=== PATIENT | female | born 1935 | race Caucasian/White ===

== ENCOUNTER 2018-01-30 11:13 | Inpatient (IN) | payer MEDICARE, OTHER ==
[2018-01-30] VITALS (12 sets, daily range): BP systolic 128–176; BP diastolic 66–108
[~2018-01-30] VITALS: Ht 165.1 cm; Wt 82.8 kg
[~2018-01-30 11:13] MED LIST: AMIODARONE200 MG OR; ANTIVERT25 MG PO; BABY ASPIRIN81 MG PO; BENAZEPRIL10 M1 PO; CALCIUM D- OR; CALTRATE 600 PO; CARVEDILOL25 MG PO; CIPRO500 MG OR; CLONIDINE0.1 MG OR; COREG12.5 MG PO; COUMADIN1 MG PO; DIGOX0.125 MG PO; DYRENIUM50 MG OR; EXTRA STRENGTH500 MG PO; HYDROCHLOROT25 MG PO; HYDROCHLOROTH12.5 M1 PO; HYDROCHLOROTH12.5 MG OR; K-DUR/KLOR-CON10 ME1 PO; KEFLEX500 M1 PO; LANOXIN0.125 MG PO; LASIX 20 MG20 MG/TAB PO; LEVOTHYROXIN125 MCG PO; LEVOTHYROXIN137 MCG PO; MAXZIDE-2537.5 MG/TA PO; MAXZIDE1 TAB OR; OMEGA 31000 MG PO; OMEPRAZOLE10 MG PO; SLO-NIACIN500 MG PO; TRAMADOL HCL50 MG PO
[2018-01-30 12:09] LABS: HEMATOCRIT 28.4 % (37.0-47.0); HEMOGLOBIN 8.7 g/dl (12.0-16.0); IMMATURE GRANULOCYTES 1.1 % (0.0-5.0); MEAN CELL VOLUME 96.9 fL CALC (80.0-100.0); MEAN CORPUSCULAR HGB 29.7 pG CALC (26.0-32.0); MEAN CORPUSCULAR HGB CONC 30.6 g/L CALC (32.0-36.0); NEUT# 3.97 thou/uL (2.00-7.15); RED BLOOD COUNT 2.93 mill/uL (4.20-5.60); RED CELL DISTRI WIDTH 19.4 % (11.5-15.5)
[2018-01-30 12:22] LABS: ALBUMIN 3.9 g/dL (3.2-5.0); ALKALINE PHOSPHATASE 72 u/l (38-126); ANION GAP 14 (6-22 (CALC)); BILIRUBIN, TOTAL 0.8 mg/dL (0.0-1.4); BUN 13 mg/dL (8-23); BUN/CREATININE RATIO 14 (12-20 (CALC)); CALCULATED LDLCHOLESTEROL 49 mg/dL (62-129 (CALC)); CARBON DIOXIDE 26 mmol/l (22-30); CHLORIDE 105 mmol/l (95-108); CHOLESTEROL HDL RATIO 2.6 (<4.4 (CALC)); GFR 53 ML/MIN (>=60 (CALC)); GFR FOR AFR.AMER. > 60 ML/MIN (>=60 (CALC)); HDL CHOLESTEROL 43 mg/dL (>=40); POTASSIUM 3.9 mmol/l (3.5-5.1); SGOT/AST 55 u/l (9-36); SODIUM 141 mmol/l (137-146); TOTAL CHOLESTEROL 110 mg/dl (0-199); TOTAL PROTEIN 7.7 g/dL (6.3-8.2); TOTAL TRIGLYCERIDES 88 mg/dl (30-149); VLDL CHOLESTROL 18 mg/dl (0-48 (CALC))
[2018-01-30 12:27] LABS: DIGOXIN 0.5 ng/mL (0.8-2.0)
[2018-01-30] MEDS ORDERED: COREG12.5 MG PO (12:38)
[2018-01-30] MEDS ORDERED: LOSARTAN POT50 MG PO (12:39)
[2018-01-30] MEDS ORDERED: HYDRALAZINE10 M2 PO (12:40)
[2018-01-30] MEDS ORDERED: LASIX 40 MG TAB40 MG PO (12:40)
[2018-01-30] MEDS ORDERED: TYLENOL 8 HOUR650 MG PO (12:44)
[2018-01-30 12:52] LABS: TSH, 3RD GENERATION 6.22 uIU/mL (0.47 - 4.68)
[2018-01-30 16:12] LABS: URINE BILIRUBIN - DIPSTICK NEGATIVE (NEGATIVE); URINE BLOOD DIPSTICK NEGATIVE (NEGATIVE); URINE COLOR YELLOW; URINE GLUCOSE - DIPSTICK NEGATIVE (NEGATIVE); URINE KETONE NEGATIVE (NEGATIVE); URINE LEUK ESTERASE NEGATIVE (NEGATIVE); URINE NITRITE - DIPSTICK NEGATIVE (Negative); URINE PROTEIN - DIPSTICK NEGATIVE (NEG-TRACE); URINE UROBILINOGEN - DIPSTICK 0.2 E.U./dL (0.2)
[2018-01-30 16:15] LABS: URINE CLARITY CLEAR
[2018-01-30] MEDS ORDERED: B121000 MCG PO (16:33)
[2018-01-31] VITALS (18 sets, daily range): BP systolic 72–127; BP diastolic 46–98
[2018-01-31 04:53] LABS: HEMOGLOBIN 8.9 g/dl (12.0-16.0); MEAN CELL VOLUME 95.2 fL CALC (80.0-100.0); MEAN CORPUSCULAR HGB 30.3 pG CALC (26.0-32.0); MEAN CORPUSCULAR HGB CONC 31.8 g/L CALC (32.0-36.0); RED BLOOD COUNT 2.94 mill/uL (4.20-5.60); RED CELL DISTRI WIDTH 19.2 % (11.5-15.5)
[2018-01-31 05:05] LABS: ALBUMIN 3.7 g/dL (3.2-5.0); BILIRUBIN, TOTAL 0.9 mg/dL (0.0-1.4); CREATININE 1.1 mg/dL (0.5-1.0); MAGNESIUM 1.6 mg/dL (1.6-2.3); TOTAL PROTEIN 7.1 g/dL (6.3-8.2)
[2018-01-31 05:09] LABS: POTASSIUM 3.1 mmol/l (3.5-5.1)
[2018-01-31 08:39] LABS: INTERNATIONAL NORMALIZED RATIO 1.9 RATIO (0.7-1.3)
[2018-01-31] MEDS ORDERED: WARFARIN1 MG PO (13:06)
[2018-01-31] MEDS ORDERED: WARFARIN2 MG PO (13:07)
[2018-02-01 00:18] VITALS: BP 115/67
[2018-02-01 02:46] VITALS: BP 78/53
[2018-02-01 04:46] VITALS: BP 87/66
[2018-02-01 05:55] LABS: HEMATOCRIT 29.1 % (37.0-47.0); HEMOGLOBIN 9.3 g/dl (12.0-16.0); IMMATURE GRANULOCYTES 0.5 % (0.0-5.0); MEAN CELL VOLUME 94.8 fL CALC (80.0-100.0); MEAN CORPUSCULAR HGB 30.3 pG CALC (26.0-32.0); NEUT# 3.64 thou/uL (2.00-7.15); RED BLOOD COUNT 3.07 mill/uL (4.20-5.60); RED CELL DISTRI WIDTH 18.8 % (11.5-15.5)
[2018-02-01 06:03] LABS: ALBUMIN 3.4 g/dL (3.2-5.0); BILIRUBIN, TOTAL 0.8 mg/dL (0.0-1.4); CREATININE 1.4 mg/dL (0.5-1.0); MAGNESIUM 1.6 mg/dL (1.6-2.3); POTASSIUM 3.2 mmol/l (3.5-5.1); TOTAL PROTEIN 6.7 g/dL (6.3-8.2)
[2018-02-01 07:00] VITALS: BP 91/58
[2018-02-01 10:00] VITALS: BP 99/49
[2018-02-01 12:00] VITALS: BP 103/59
[2018-02-01] MEDS ORDERED: BUMETANIDE1 MG PO (12:16)
== END 2018-02-01 13:10 | disposition home or self-care (01) | DRG 291 ==
LOC: ICU 11:13
PROVIDERS: ADMIT Internal Medicine; ATTEND Internal Medicine Nephrology
DX: I13.0 Hypertensive heart and chronic kidney disease with heart failure and stage 1 through stage 4 chronic kidney disease, or unspecified chronic kidney disease (principal); I50.33 Acute on chronic diastolic (congestive) heart failure; N17.9 Acute kidney failure, unspecified; N18.3 Chronic kidney disease, stage 3 (moderate); I48.2 Chronic atrial fibrillation; I35.0 Nonrheumatic aortic (valve) stenosis; I25.10 Atherosclerotic heart disease of native coronary artery without angina pectoris; E03.9 Hypothyroidism, unspecified; D63.8 Anemia in other chronic diseases classified elsewhere; E87.6 Hypokalemia; M79.7 Fibromyalgia; M19.90 Unspecified osteoarthritis, unspecified site; I27.20 Pulmonary hypertension, unspecified; Z86.73 Personal history of transient ischemic attack (TIA), and cerebral infarction without residual deficits; Z86.718 Personal history of other venous thrombosis and embolism; Z79.01 Long term (current) use of anticoagulants; Z86.711 Personal history of pulmonary embolism; Z95.0 Presence of cardiac pacemaker

== ENCOUNTER 2018-05-16 12:26 | Outpatient (REF) | payer MEDICARE, OTHER ==
[~2018-05-16 12:26] MED LIST changes: +B121000 MCG PO; +BUMETANIDE1 MG PO; +HYDRALAZINE10 M2 PO; +LASIX 40 MG TAB40 MG PO; +LOSARTAN POT50 MG PO; +TYLENOL 8 HOUR650 MG PO; +WARFARIN1 MG PO; +WARFARIN2 MG PO; +[UNRECOGNIZED DRUG - OTHER] PO
--- NOTE | 2018-05-16 13:03 | NUR ---
HOLD PROCRIT DOSE TODAY. HGB IS 11.2 GOAL HGB IS 10-11 WE WILL HAVE THE PATIENT RETURN IN 2 WEEKS.
== END 2018-05-16 12:56 | disposition home or self-care (01) ==
LOC: INF 12:26
PROVIDERS: ATTEND Internal Medicine Nephrology
DX: D63.1 Anemia in chronic kidney disease (principal); N18.3 Chronic kidney disease, stage 3 (moderate)

== ENCOUNTER → 2018-05-28 | Outpatient (REF) | payer MEDICARE, OTHER ==
[2018-05-28 10:15] LABS: URINE BILIRUBIN - DIPSTICK NEGATIVE (NEGATIVE); URINE BLOOD DIPSTICK NEGATIVE (NEGATIVE); URINE COLOR YELLOW; URINE GLUCOSE - DIPSTICK NEGATIVE (NEGATIVE); URINE KETONE NEGATIVE (NEGATIVE); URINE LEUK ESTERASE MODERATE (Negative); URINE NITRITE - DIPSTICK NEGATIVE (Negative); URINE PROTEIN - DIPSTICK TRACE mg/dL (NEG-TRACE); URINE UROBILINOGEN - DIPSTICK 0.2 E.U./dL (0.2)
[2018-05-28 10:17] LABS: HEMATOCRIT 34.4 % (37.0-47.0); HEMOGLOBIN 10.9 g/dl (12.0-16.0); IMMATURE GRANULOCYTES 1.4 % (0.0-5.0); MEAN CORPUSCULAR HGB 32.6 pG CALC (26.0-32.0); MEAN CORPUSCULAR HGB CONC 31.7 g/L CALC (32.0-36.0); NEUT# 4.05 thou/uL (2.00-7.15); RED BLOOD COUNT 3.34 mill/uL (4.20-5.60); RED CELL DISTRI WIDTH 18.2 % (11.5-15.5)
[2018-05-28 10:22] LABS: URINE CLARITY HAZY
[2018-05-28 10:23] LABS: URINE BACTERIA MODERATE hpf; URINE EPITHELIAL CELLS MODERATE EPI/hpf (0-FEW)
[2018-05-28 10:35] LABS: ALBUMIN 3.8 g/dL (3.2-5.0); BUN 15 mg/dL (8-23); CARBON DIOXIDE 27 mmol/l (22-30); CHLORIDE 104 mmol/l (95-108); GFR 53 ML/MIN (>=60 (CALC)); GFR FOR AFR.AMER. > 60 ML/MIN (>=60 (CALC)); POTASSIUM 3.5 mmol/l (3.5-5.1); SODIUM 141 mmol/l (137-146)
== END | disposition home or self-care (01) ==
LOC: LAB 09:20
PROVIDERS: ATTEND Internal Medicine Nephrology
DX: N18.3 Chronic kidney disease, stage 3 (moderate) (principal); D63.1 Anemia in chronic kidney disease; N25.81 Secondary hyperparathyroidism of renal origin

== ENCOUNTER 2018-06-14 09:38 | Outpatient (REF) | payer MEDICARE, OTHER ==
--- NOTE | 2018-05-29 09:45 | NUR ---
Patient has Procrit injection scheduled for 05/31. On last visit from 05/16, dose was held due to Hgb of 11.2. Last dose received was 8,000 units on 05/02/18. She had a Hgb of 10.9 g/dL on 05/28/18. Patient called and was notified that we will hold dose for this week, 05/31/18 visit and she will return for next visit on 06/14/18. Current Hgb on 05/28/18: 10.9 g/dL Previous Hgb on 05/16/18: 11.2 g/dL Next Iron Study on: 07/18/18 Next Hgb due on: 06/14/18 Pt will come back for recheck of Hgb on 06/14/18. QOL assessment Side effects:No Dose adjustments:No Repeat dose:8,000 units sc 2 weeks
[2018-06-14 11:16] VITALS: BP 151/83
--- NOTE | 2018-06-14 12:57 | NUR ---
Patient is here for Procrit injection Current Procrit dose of 4,000 units 06/14/18, Previous Procrit dose of 8,000 units on 05/02/18. Current Hgb 10.5 g/dL on 06/14/18 Previous Hgb 10.9 g/dL on 05/28/18 Previous Iron study on date: 05/28/18 Next Iron Study on: 08/25/18 Next Hgb due on: 06/28/18 Pt will come back for next dose of on 06/28/18 Notes: Patient verbalized feeling fine but has intermittent unsteady gait which is normal for her. BP: 151/83. No complaint of side effects from procrit. Patient didn't have any questions. QOL assessment Side effects: No Dose adjustments: Yes New dose: 4,000 units SubQ every 2 weeks
== END 2018-06-14 11:53 | disposition home or self-care (01) ==
LOC: INF 09:38
PROVIDERS: ATTEND Internal Medicine Nephrology
DX: D63.1 Anemia in chronic kidney disease (principal); N18.3 Chronic kidney disease, stage 3 (moderate)
CPT/HCPCS: J0885

== ENCOUNTER 2019-04-16 13:08 | Observation (INO) | payer MEDICARE, OTHER ==
[~2019-04-16] VITALS: Ht 165.1 cm; Wt 86.0 kg
[~2019-04-16 13:08] MED LIST changes: -WARFARIN1 MG PO
[2019-04-16] MEDS ORDERED: LEVOTHYROXIN150 MCG PO (14:03)
[2019-04-16] MEDS ORDERED: BUMEX1 M1 (14:04)
[2019-04-16] MEDS ORDERED: WARFARIN2 MG PO (14:06)
[2019-04-16] MEDS ORDERED: PROCRIT2000 UNIT/ IM (14:08)
--- NOTE | 2019-04-16 14:29 | NUR ---
PT AMB TO BATHROOM FOR UA WITH STEADY GAIT IN NO DISTRESS WITH RW
[2019-04-16 15:11] LABS: URINE BILIRUBIN - DIPSTICK NEGATIVE (NEGATIVE); URINE BLOOD DIPSTICK NEGATIVE (NEGATIVE); URINE COLOR YELLOW; URINE GLUCOSE - DIPSTICK NEGATIVE (NEGATIVE); URINE KETONE NEGATIVE (NEGATIVE); URINE NITRITE - DIPSTICK NEGATIVE (Negative); URINE PROTEIN - DIPSTICK TRACE mg/dL (NEG-TRACE); URINE UROBILINOGEN - DIPSTICK 0.2 E.U./dL (0.2)
[2019-04-16 15:12] LABS: HEMATOCRIT 36.7 % (37.0-47.0); HEMOGLOBIN 11.3 g/dl (12.0-16.0); MEAN CELL VOLUME 94.1 fL CALC (80.0-100.0); MEAN CORPUSCULAR HGB CONC 30.8 g/L CALC (32.0-36.0); PLATELET COUNT 337 thou/uL (130-400); RED CELL DISTRI WIDTH 17.4 % (11.5-15.5)
[2019-04-16 15:17] LABS: URINE LEUK ESTERASE SMALL (NEGATIVE)
--- NOTE | 2019-04-16 15:20 | NUR ---
DR VALERIO AT BEDSIDE FOR ASSESSMENT; PT DENIES ANY NEEDS AT THIS TIME; VSS; WILL CONTINUE TO MONITOR
[2019-04-16 15:32] LABS: ALBUMIN 4.3 g/dL (3.2-5.0); BILIRUBIN, TOTAL 1.1 mg/dL (0.0-1.4); CREATININE 1.1 mg/dL (0.5-1.0); POTASSIUM 3.7 mmol/l (3.5-5.1); TOTAL PROTEIN 8.7 g/dL (6.3-8.2)
[2019-04-16 15:33] LABS: URINE AMORPH SEDIMENT MANY hpf (NONE-FEW); URINE SQUAMOUS EPITHELIAL CELL MODERATE EPI/hpf (0-FEW)
[2019-04-16 15:46] LABS: IMMATURE GRANULOCYTES 22.8 % (0.0-5.0)
[2019-04-16 15:47] LABS: BAND 16 % (0-8); MANUAL DIFFERENTIAL YES
[2019-04-16] MEDS ORDERED: BUMETANIDE1 MG PO (16:08)
[2019-04-16] MEDS ORDERED: COUMADIN1 MG PO ×2 (16:11→16:13)
[2019-04-16] MEDS ORDERED: EUTHYROX137 MCG PO (16:17)
--- NOTE | 2019-04-16 16:20 | NUR ---
PT RESTING ON STRETCHER; NO S/S OF DISTRESS NOTED; VSS; PT ADVISED OF CONTINUE WAIT TIME
--- NOTE | 2019-04-16 17:12 | NUR ---
PT RESTING ON STRETCHER; NO S/S OF DISTRESS NOTED; IV ANTIBIOTICS INFUSING TO RAC; VSS; WILL CONTINUE TO MONITOR
--- NOTE | 2019-04-16 18:04 | NUR ---
PT RESTING ON STRETCHER; NO S/S OF DISTRESS NOTED; PT ADVISED OF CONTINUED WAIT TIME FOR ADMISSION; WILL CONTINUE TO MONITOR
--- NOTE | 2019-04-16 18:52 | NUR ---
REPORT CALLED TO VINOD FAULKNER
--- NOTE | 2019-04-16 19:09 | NUR ---
Admission Note Report Given to: VINOD FAULKNER Transported by: X Wheelchair Stretcher Transported with: X Nurse Transporter X Patent IV O2 X Bonding Machine Tender Location: ICU X MS2
[2019-04-17] VITALS (7 sets, daily range): BP systolic 118–144; BP diastolic 53–78
--- NOTE | 2019-04-17 00:29 | NUR ---
PATIENT RESTING IN BED AT THIS TIME WITH NO COMPLAINTS. ZOSYN HUNG ORDERED. IVF PATENT AND INFUSING AT 100CC/HR. SITE REMAINS HEALTHY TO RIGHT AC. SAFETY PRECAUTIONS REINFORCED. CALL LIGHT IN REACH. WILL CONT TO MONITOR.
--- NOTE | 2019-04-17 04:00 | NUR ---
PATIENT RESTING IN BED-APPEARS SLEEPING AT THIS TIME. CALL LIGHT IN REACH. WILL CONT TO MONITOR.
[2019-04-17 05:41] LABS: HEMATOCRIT 34.5 % (37.0-47.0); HEMOGLOBIN 10.6 g/dl (12.0-16.0); MEAN CELL VOLUME 94.5 fL CALC (80.0-100.0); MEAN CORPUSCULAR HGB CONC 30.7 g/L CALC (32.0-36.0); PLATELET COUNT 324 thou/uL (130-400); RED BLOOD COUNT 3.65 mill/uL (4.20-5.60); RED CELL DISTRI WIDTH 17.4 % (11.5-15.5)
[2019-04-17 06:11] LABS: ALBUMIN 3.5 g/dL (3.2-5.0); BILIRUBIN, TOTAL 1.3 mg/dL (0.0-1.4); CREATININE 1.1 mg/dL (0.5-1.0); POTASSIUM 3.3 mmol/l (3.5-5.1); TOTAL PROTEIN 7.1 g/dL (6.3-8.2)
[2019-04-17 06:31] LABS: MANUAL DIFFERENTIAL YES
[2019-04-17 06:32] LABS: BAND 21 % (0-8)
--- NOTE | 2019-04-17 07:00 | NUR ---
SHIFT CHANGE REPORT, PT AWAKE ALERT AND ORIENTED SITTING UP ON BED SIDE, PLEASANTLY CONVERSANT, NO C/O DISCOMFORT, IVF INFUSING, BED IN LOWEST POSITION AND CALL WESTON IN REACH.
--- NOTE | 2019-04-17 12:00 | NUR ---
HAVING MEAL, FAMILY VISITING, ALL NEEDS ADDRESSED, CALL WESTON IN REACH.
[2019-04-17 14:03] LABS: PROTHROMBIN TIME 20.5 SECONDS (9.0-12.5)
--- NOTE | 2019-04-17 15:34 | NUR ---
TRANSPORTED OFF UNIT AT THIS TIME VIA W/V BY VOLUNTEER TO RADIOLOGY FOR PROCEDURE, PT PREVIOUSLY INFORMED OF PROCEDURE AND STATED UNDERSTANDING.
--- NOTE | 2019-04-17 16:04 | NUR ---
TRANSPORTED BACK TO ROOM VIA W/C BY VOLUNTEER AND SETTLED IN BED.
--- NOTE | 2019-04-17 19:44 | NUR ---
REPORT FROM TRISHA BROCK. PT RESTING IN BED. ALERT AND ORIENTED. NO APPARENT DISTRESS NOTED. PT DENIES ANY PAIN OR DISCOMFORT. IV SITE APPEARS HEALTHY. DISCUSSED POC. PT VERBALIZED UNDERSTANDING. PT DENIES ANY CURRENT WANTS OR NEEDS. CALL LIGHT WITHIN REACH. WILL CONTINUE TO MONITOR.
[2019-04-17 20:03] LABS: INTERNATIONAL NORMALIZED RATIO 2.1 RATIO (0.7-1.3); PROTHROMBIN TIME 21.6 SECONDS (9.0-12.5)
--- NOTE | 2019-04-17 23:50 | NUR ---
PT ASSISTED TO BATHROOM X1 ASSIST WITH WALKER. NO APPARENT DISTRESS NOTED. PT REPORTS FEELING WEAK. ASSISTED BACK TO BED. IV FLUIDS INFUSING WITHOUT DIFFICULTY. IV ABT INITIATED. PT DENIES ANY CURRENT WANTS OR NEEDS. CALL LIGHT WITHIN REACH. WILL CONTINUE TO MONITOR.
--- NOTE | 2019-04-18 03:07 | NUR ---
PT RESTING IN BED WITH EYES CLOSED. NO APPARENT DISTRESS NOTED. CALL LIGHT WITHIN REACH. WILL CONTINUE TO MONITOR.
[2019-04-18 03:45] VITALS: BP 140/63
[2019-04-18 05:42] LABS: HEMATOCRIT 33.2 % (37.0-47.0); HEMOGLOBIN 10.4 g/dl (12.0-16.0); MEAN CELL VOLUME 94.1 fL CALC (80.0-100.0); MEAN CORPUSCULAR HGB 29.5 pG CALC (26.0-32.0); MEAN CORPUSCULAR HGB CONC 31.3 g/L CALC (32.0-36.0); PLATELET COUNT 288 thou/uL (130-400); RED BLOOD COUNT 3.53 mill/uL (4.20-5.60); RED CELL DISTRI WIDTH 17.6 % (11.5-15.5)
[2019-04-18 05:56] LABS: INTERNATIONAL NORMALIZED RATIO 2.2 RATIO (0.7-1.3); PROTHROMBIN TIME 22.3 SECONDS (9.0-12.5)
[2019-04-18 06:11] LABS: MANUAL DIFFERENTIAL YES
[2019-04-18 06:14] LABS: CREATININE 1.2 mg/dL (0.5-1.0); POTASSIUM 3.5 mmol/l (3.5-5.1)
[2019-04-18 06:22] LABS: MAGNESIUM 2.1 mg/dL (1.6-2.3)
[2019-04-18 06:32] LABS: BAND 14 % (0-8); IMMATURE CELLS 10 %
[2019-04-18 07:40] VITALS: BP 157/89
--- NOTE | 2019-04-18 07:40 | NUR ---
SITTING AT SIDE OF BED ON ROUNDS. DENIES ANY PAIN OR DISCOMFORTS. RESP NON-LABORED, LUNGS CLEAR. IV IN LFA WITH NS INFUSING AT 100 ML/HR. IV SITE HEALTHY. DISCUSSED PLAN OF CARE. DENIES NEEDS AT THIS TIME. CALL WESTON IN REACH.
[2019-04-18 10:38] VITALS: BP 116/68
--- NOTE | 2019-04-18 11:52 | NUR ---
SITTING UP IN CHAIR. NO COMPLAINTS VOICED. RESP NON-LABORED. IV SITE BENIGN IN LFA.
[2019-04-18 15:10] VITALS: BP 120/69
--- NOTE | 2019-04-18 16:30 | NUR ---
DR JIM HERE TO SEE PATIENT.
[2019-04-18 18:37] VITALS: BP 119/75
--- NOTE | 2019-04-18 19:05 | NUR ---
REPORT FROM GARTH BROCK. PT RESTING IN BED WITH EYES CLOSED. NO APPARENT DISTRESS NOTED. PT WAKES EASILY. DENIES ANY CURRENT WANTS OR NEEDS. CALL LIGHT WITHIN REACH. WILL CONTINUE TO MONITOR.
--- NOTE | 2019-04-18 23:02 | NUR ---
PT RESTING IN BED WITH EYES CLOSED. NO APPARENT DISTRESS NOTED. CALL LIGHT WITHIN REACH. WILL CONTINUE TO MONITOR.
[2019-04-18 23:45] VITALS: BP 126/78
--- NOTE | 2019-04-19 03:41 | NUR ---
PT RESTING IN BED WITH EYES CLOSED. VISITOR REMAINS IN ROOM. NO APPARENT DISTRESS NOTED. CALL LIGHT WITHIN REACH. WILL CONTINUE TO MONITOR.
--- NOTE | 2019-04-19 03:46 | NUR ---
PT RESTING IN BED WITH EYES CLOSED. NO APPARENT DISTRESS NOTED. CALL LIGHT WITHIN REACH. WILL CONTINUE TO MONITOR.
[2019-04-19 04:15] VITALS: BP 126/78
[2019-04-19 06:04] LABS: HEMATOCRIT 33.7 % (37.0-47.0); HEMOGLOBIN 10.4 g/dl (12.0-16.0); MEAN CELL VOLUME 95.2 fL CALC (80.0-100.0); MEAN CORPUSCULAR HGB 29.4 pG CALC (26.0-32.0); MEAN CORPUSCULAR HGB CONC 30.9 g/L CALC (32.0-36.0); PLATELET COUNT 301 thou/uL (130-400); RED BLOOD COUNT 3.54 mill/uL (4.20-5.60); RED CELL DISTRI WIDTH 17.3 % (11.5-15.5)
[2019-04-19 06:21] LABS: ALBUMIN 3.2 g/dL (3.2-5.0); ALKALINE PHOSPHATASE 71 u/l (38-126); BILIRUBIN, TOTAL 1.1 mg/dL (0.0-1.4); C-REACTIVE PROTEIN 2.7 mg/dL (0-0.9); SGOT/AST 36 u/l (9-36); TOTAL PROTEIN 6.7 g/dL (6.3-8.2)
[2019-04-19 06:35] LABS: BAND 18 % (0-8); IMMATURE GRANULOCYTES 26.6 % (0.0-5.0); MANUAL DIFFERENTIAL YES
[2019-04-19 07:45] VITALS: BP 166/87
--- NOTE | 2019-04-19 07:45 | NUR ---
RESTING IN BED WITH EYES CLOSED, OPENS EYES TO NAME. RESP NON-LABORED. LUNGS CLEAR. IV IN LFA WITH NS INFUSING AT 100 ML/HR, IV SITE HEALTHY. SHIFT ASSESSMENT COMPLETED. DISCUSSED PLAN OF CARE. DENIES NEEDS AT THIS TIME. CALL WESTON IN REACH.
[2019-04-19 08:48] VITALS: BP 166/87
--- NOTE | 2019-04-19 12:00 | NUR ---
PATIENT TO BE DC'D THIS AFTERNOON. IVF'S DC'D AND IV SITE DC'D. PATIENT UP AND ABOUT IN ROOM WITHOUT COMPLAINTS.
--- NOTE | 2019-04-19 15:10 | NUR ---
Discharge instructions given. Patient verbalizes understanding of same. Discharged in stable condition via Wheelchair to Home with family. All belongings sent with pt.
== END 2019-04-19 15:10 | disposition home or self-care (01) ==
LOC: ED 13:08 → ED-I 17:08 → MS2 17:22 → ED 17:22 → MS2 17:22
PROVIDERS: Family Medicine; Internal Medicine Infectious Disease; Nurse Practitioner Family; ADMIT Internal Medicine; ATTEND Internal Medicine
DX: D72.829 Elevated white blood cell count, unspecified (principal); R55 Syncope and collapse; I12.9 Hypertensive chronic kidney disease with stage 1 through stage 4 chronic kidney disease, or unspecified chronic kidney disease; N18.2 Chronic kidney disease, stage 2 (mild); I35.0 Nonrheumatic aortic (valve) stenosis; E03.9 Hypothyroidism, unspecified; N17.9 Acute kidney failure, unspecified; I48.20 Chronic atrial fibrillation, unspecified; D64.9 Anemia, unspecified; R16.2 Hepatomegaly with splenomegaly, not elsewhere classified; K21.9 Gastro-esophageal reflux disease without esophagitis; M19.90 Unspecified osteoarthritis, unspecified site; Z79.01 Long term (current) use of anticoagulants; Z86.711 Personal history of pulmonary embolism; Z95.0 Presence of cardiac pacemaker; Z86.73 Personal history of transient ischemic attack (TIA), and cerebral infarction without residual deficits; Z86.718 Personal history of other venous thrombosis and embolism; Z90.49 Acquired absence of other specified parts of digestive tract; R53.1 Weakness
CPT/HCPCS: G0378

== ENCOUNTER 2019-05-29 | Observation (INO) | payer MEDICARE, OTHER ==
[~2019-05-29] MED LIST changes: +BUMEX1 M1; +EUTHYROX137 MCG PO; +LEVOTHYROXIN150 MCG PO; +PROCRIT2000 UNIT/ IM
--- NOTE | 2019-05-29 09:20 | NUR ---
PT TO ROOM FOR EXAM PER W/C
[2019-05-29] MEDS ORDERED: ALLOPURINOL300 MG PO (09:35)
[2019-05-29 10:10] LABS: HEMATOCRIT 32.5 % (37.0-47.0); MEAN CORPUSCULAR HGB 29.2 pG CALC (26.0-32.0); MEAN CORPUSCULAR HGB CONC 30.8 g/L CALC (32.0-36.0); PLATELET COUNT 383 thou/uL (130-400); RED BLOOD COUNT 3.42 mill/uL (4.20-5.60); RED CELL DISTRI WIDTH 18.2 % (11.5-15.5)
[2019-05-29 10:11] LABS: BAND 41 % (0-8); MANUAL DIFFERENTIAL YES
--- NOTE | 2019-05-29 10:15 | NUR ---
PT ALERT/ORIENTED X3, NO DISTRESS NOTED. NO VOMITING, NO DIARRHEA, STATES ABDOMINAL PAIN HAS DECREASED.
[2019-05-29 10:30] LABS: BILIRUBIN, TOTAL 1.3 mg/dL (0.0-1.4); CREATININE 1.4 mg/dL (0.5-1.0)
--- NOTE | 2019-05-29 11:19 | NUR ---
PT RESTING QUIETLY ON STRETCHER, VSS, RESTING QUIETLY
--- NOTE | 2019-05-29 11:45 | NUR ---
PT VOMITTED EST 400ML OF GREEN BILE; EMESIS BAG GIVEN; MD NOTIFED; PT UPDATED ON POC AND CONTINUED WAIT TIME; WILL CONTINUE TO MONITOR
--- NOTE | 2019-05-29 12:03 | NUR ---
RECIEVED CARE OF PATIENT. PT SITTING UPRIGHT ON STRETCHER. COMPLAINS OF ABDOMINAL PAIN. PT SKIN PINK, WARM AND DRY. PT AO X 3. ABD SLIGHTLY DISTENDED.
--- NOTE | 2019-05-29 12:57 | NUR ---
UNABLE TO GIVE REPORT AT THIS TIME. NO ANSWER ON MED SURG
--- NOTE | 2019-05-29 13:16 | NUR ---
REPORT CALLED TO DEYVI BROCKLAYOUT FORMER.
--- NOTE | 2019-05-29 13:31 | NUR ---
PT ARRIVED TO CT VIA WC ACCOMPANIED BY JOSE ALBERTO BROCK. PT A&O X3. NO DISTRESS NOTED. NG TUBE IN PLACED AND CONNECTED TO CONTINUOUS MED SUCTION. YELLOW OUTPUT NOTED. ORIENTED PT TO ROOM. PT REFUSED HEATHER HOSES. PER PT SHE FEELS BETTER NOW THAT THE NG TUBE HAS BEEN INSERTED. NO OTHER NEEDS AT THIS TIME. DISCUSSED POC AND NPO STATUS AND REASONING BEHIND IT. PT VERBALIZED UNDERSTANDING. CALL LIGHT IN REACH. CONTINUE TO MONITOR.
--- NOTE | 2019-05-29 13:35 | NUR ---
PT TRANSPORTED VIA STRETCHER TO MED SURG. ASSISTED TO BED. NG HOOKED TO SUCTION.
[2019-05-29 13:40] VITALS: BP 127/73
[2019-05-29 15:45] VITALS: BP 125/63
--- NOTE | 2019-05-29 17:54 | NUR ---
PT SLEEPING IN BED. C/O OF NO PAIN AT THIS TIME JUST A MILD DISCOMFORT. CONTINUE TO MONITOR.
--- NOTE | 2019-05-29 18:30 | NUR ---
DR HOPKINS AT BEDSIDE DISCUSSING POC
--- NOTE | 2019-05-29 19:00 | NUR ---
REPORT FROM QUIN RIVERA. PT RESTING IN BED WITH EYES CLOSED. NO APPARENT DISTRESS NOTED. PT WAKES EASILY. DENIES ANY PAIN OR DISCOMFORT. NG TUBE TO LEFT NARE AT [facility], YELLOW BILE OUTPUT NOTED. DISCUSSED POC. PT VERBALIZED UNDERSTANDING. PT REMAINS NPO. IV FLUIDS INFUSING WITHOUT DIFFICULTY. CALL LIGHT WITHIN REACH. WILL CONTINUE TO MONITOR.
[2019-05-29 19:20] VITALS: BP 124/71
--- NOTE | 2019-05-29 20:55 | NUR ---
PT ASSISTED TO BSC. PT VOIDED. SAMPLE OBTAINED AND SENT TO LAB ORDERED. ASSISTED BACK TO BED. NG TUBE REMAINS IN PLACE AT [facility]. NO APPARENT DISTRESS NOTED. PT DENIES ANY PAIN OR DISCOMFORT. CALL LIGHT WITHIN REACH. WILL CONTINUE TO MONITOR.
[2019-05-29 22:28] LABS: URINE BLOOD DIPSTICK NEGATIVE (NEGATIVE); URINE GLUCOSE - DIPSTICK NEGATIVE (NEGATIVE); URINE KETONE NEGATIVE (NEGATIVE); URINE LEUK ESTERASE NEGATIVE (NEGATIVE); URINE NITRITE - DIPSTICK NEGATIVE (Negative); URINE PROTEIN - DIPSTICK 30 mg/dL (NEG-TRACE); URINE UROBILINOGEN - DIPSTICK 0.2 E.U./dL (0.2)
[2019-05-29 22:29] LABS: URINE BILIRUBIN - DIPSTICK SMALL (NEGATIVE)
[2019-05-29 22:30] LABS: URINE COLOR DK. YELLOW
[2019-05-29 23:33] LABS: URINE SQUAMOUS EPITHELIAL CELL FEW EPI/hpf (0-FEW)
--- NOTE | 2019-05-30 00:14 | NUR ---
PT RESTING IN BED WITH EYES CLOSED. NO APPARENT DISTRESS NOTED. NG TUBE REMAINS IN PLACE @ [facility]. CALL LIGHT WITHIN REACH. WILL CONTINUE TO MONITOR.
--- NOTE | 2019-05-30 03:57 | NUR ---
PT RESTING IN BED WITH EYES CLOSED. NO APPARENT DISTRESS NOTED. PT WAKES EASILY. DENIES ANY PAIN OR DISCOMFORT. NG TUBE TO LEFT NARE AT LCS, YELLOW BILE OUTPUT NOTED. PT REMAINS NPO. IV FLUIDS INFUSING WITHOUT DIFFICULTY. CALL LIGHT WITHIN REACH. WILL CONTINUE TO MONITOR.
[2019-05-30 04:07] VITALS: BP 121/74
[2019-05-30 05:45] LABS: CREATININE 1.2 mg/dL (0.5-1.0); POTASSIUM 3.8 mmol/l (3.5-5.1)
[2019-05-30 05:54] LABS: HEMATOCRIT 31.4 % (37.0-47.0); HEMOGLOBIN 9.7 g/dl (12.0-16.0); MEAN CELL VOLUME 95.2 fL CALC (80.0-100.0); MEAN CORPUSCULAR HGB 29.4 pG CALC (26.0-32.0); MEAN CORPUSCULAR HGB CONC 30.9 g/L CALC (32.0-36.0); PLATELET COUNT 408 thou/uL (130-400); RED CELL DISTRI WIDTH 18.5 % (11.5-15.5)
[2019-05-30 05:55] LABS: IMMATURE GRANULOCYTES 25.6 % (0.0-5.0); MANUAL DIFFERENTIAL YES
[2019-05-30 06:02] LABS: BAND 17 % (0-8)
[2019-05-30 06:03] LABS: IMMATURE CELLS 5 %
[2019-05-30 07:31] VITALS: BP 125/61
--- NOTE | 2019-05-30 07:37 | NUR ---
SHIFT CHANGE REPORT, PT AWAKE ALERT AND ORIENTED SITTING UP AT BEDSIDE, DENIES PAIN AT THIS TIME STATING SHE FEELS COMFORTABLE SITTING UP BUT SHE HAS PAIN WHEN SHE LAYS IN BED. NG TUPE IN PLACE TO LEFT NARE WITH WANG DRAINAGE, ALL NEEDS ADDRESSED, CALL WESTON IN REACH.
--- NOTE | 2019-05-30 09:35 | NUR ---
CALLED X-RAY REGARDING ORDER DR. ROCHA PLACED FOR SMALL BOWEL SERIES STATED TO BEATA ZIMMERMAN TO MAKE SURE THEY KNOW IT USE GASTROGRAFIN. SPOKE TO FROY ABOUT THE PROCEDURE BEING USED WITH GASTROGRAFIN. STATED SHE WILL MAKE SURE IT GETS DONE.
--- NOTE | 2019-05-30 12:00 | NUR ---
DR ROCHA CONSULTED AND ORDERED SBS, RADIOLOGY CALLED ABOUT ALLERGY, DR ROCHA CONTACTED AND ADVISED TO CONSULT WITH WEI IN RADIOLOGY WHO STATED CONTRAST CONTAINS ALLERGIC AGENT. PHARMACY CONTACTED AND CONSULTED WITH DR ROCHA, PROCEDURE CX AND ORDERS TO TRANSFER PT TO [facility] WRITTEN.
--- NOTE | 2019-05-30 14:00 | NUR ---
SITTING UP ON SIDR OF MED WHERE SHE HAS BEEN ALL DAY ONLY GETTING UP TO BSC, SHE STATES SHE IS MUCH MORE COMFORTABLE IN THAT POSITION, CALL WESTON IN REACH.
--- NOTE | 2019-05-30 14:00 | NUR ---
TRANSFER ORDERS DISCUSSED WITH PT WHO STATED UNDERSTANDING.
[2019-05-30 15:49] VITALS: BP 130/78
--- NOTE | 2019-05-30 17:37 | NUR ---
REPORT CALLED TO LAY BROCK AT [facility], PT EXPECTED TIME OF DEPARTURE IS WITHIN NEXT 40 MINS, WILL CONTINUE TO MONITOR.
--- NOTE | 2019-05-30 18:29 | NUR ---
CALLED [facility] IN REGARD TO ETA FOR THIS PT TO BE PICKED UP AND TRANSFERRED TO [facility]. SPOKE TO KEVIN WAS TOLD THEY SHOULD BE HERE ANY MINUTE TO INSIDE SALES COORDINATOR THE PT.
--- NOTE | 2019-05-30 19:03 | NUR ---
Discharge instructions given. Patient verbalizes understanding of same. Discharged in stable condition via Medical Transport to [facility] with *Other. All belongings sent with pt.
== END 2019-05-30 19:03 | disposition short-term general hospital (02) ==
PROVIDERS: Family Medicine; ADMIT Internal Medicine
DX: K56.609 Unspecified intestinal obstruction, unspecified as to partial versus complete obstruction (principal); C92.20 Atypical chronic myeloid leukemia, BCR/ABL-negative, not having achieved remission; I12.9 Hypertensive chronic kidney disease with stage 1 through stage 4 chronic kidney disease, or unspecified chronic kidney disease; N18.3 Chronic kidney disease, stage 3 (moderate); I48.91 Unspecified atrial fibrillation; E03.9 Hypothyroidism, unspecified; Z86.73 Personal history of transient ischemic attack (TIA), and cerebral infarction without residual deficits; Z95.0 Presence of cardiac pacemaker; Z86.711 Personal history of pulmonary embolism; Z86.718 Personal history of other venous thrombosis and embolism; Z79.01 Long term (current) use of anticoagulants; Z91.041 Radiographic dye allergy status
CPT/HCPCS: G0378